=== PATIENT | male | born 1955 | race African-American/Black ===

== ENCOUNTER 2021-01-04 20:46 | Emergency (ER) | payer MEDICARE, MEDICAID ==
[~2021-01-04] VITALS: Ht 182.9 cm; Wt 91.0 kg
[2021-01-04 21:37] LABS: BASOPHILS % 0.6 % (0.0-2.0); EOSINOPHILS % 5.2 % (0.0-5.0); HEMATOCRIT. 35.2 % (42.0-52.0); HEMOGLOBIN. 11.8 g/dL (14.0-18.0); LYMPHOCYTES % 19.8 % (20.0-50.0); MEAN CORPUSCULAR HEMOGLOBIN 30.3 pg (28.0-32.0); MEAN CORPUSCULAR VOLUME 89.9 fL (80.0-94.0); MONOCYTES % 6.2 % (2.0-8.0); NEUTROPHILS % 68.2 % (40.0-76.0); PLATELET 178 x1000/uL (130-400); RED BLOOD CELL COUNT 3.91 mill/uL (4.7-6.1)
[2021-01-04 21:40] LABS: CHLORIDE 107 mEq/L (98-107)
[2021-01-04] MEDS ORDERED: ASPIRIN 325MG EC TABLET PO SCH (22:30)
[2021-01-04 23:10] VITALS: BP 110/65
== END 2021-01-04 23:15 | disposition left against medical advice (07) ==
LOC: ER 20:46
DX: I10 Essential (primary) hypertension (principal); R07.89 Other chest pain
CPT/HCPCS: 36415; 71045; 80053; 83880; 84484; 85025; 93005; 99285

== ENCOUNTER 2023-03-16 02:47 | Emergency (ER) | payer MEDICARE, MEDICAID ==
[~2023-03-16] VITALS: Ht 188 cm; Wt 100.0 kg
[~2023-03-16 02:47] MED LIST: APIX5TAB PO; ASPI-1406 PO; COR12 PO; EMPA25TA PO; FINA5TAB11 PO; FURO20TA4 PO; LIP40 PO; LOSA-413 PO; SENN1TAB35 PO; SPIR25TA PO; TAMS-11 PO
[2023-03-16 02:49] VITALS: O2SAT 98
[2023-03-16] MEDS ORDERED: METOPROLOL TARTRATE 5MG/5ML VIAL IV ONE (03:15)
[2023-03-16] MEDS ORDERED: MORPHINE SULFATE 4 MG/ML CPJ (NOT FOR IM USE) IV ONE (03:15)
[2023-03-16] MEDS ORDERED: ENOXAPARIN 100MG/ML SYR SUBCUT ONE (03:15)
[2023-03-16] MEDS ORDERED: ONDANSETRON HCL 4MG/2ML INJ IV ONE (03:15)
[2023-03-16] MEDS ORDERED: ASPIRIN 325MG EC TABLET PO ONE (03:15)
[2023-03-16] MEDS ORDERED: NITROGLYCERIN 0.2MG/HR PATCH TOP ONE (03:15)
[2023-03-16] MEDS ORDERED: HYDRALAZINE 20MG/ML VIAL IV ONE (03:15)
[2023-03-16 03:36] LABS: BASOPHILS % 0.6 % (0.0-2.0); EOSINOPHILS % 5.7 % (0.0-5.0); HEMATOCRIT. 40.7 % (42.0-52.0); HEMOGLOBIN. 13.2 g/dL (14.0-18.0); LYMPHOCYTES % 24.6 % (20.0-50.0); MEAN CORPUSCULAR HEMOGLOBIN 30.1 pg (28.0-32.0); MEAN CORPUSCULAR HGB CONC 32.4 g/dL (31.0-37.0); MEAN PLATELET VOLUME 9.7 fl (7.4-10.4); MONOCYTES % 7.6 % (2.0-8.0); NEUTROPHILS % 61.5 % (40.0-76.0); PLATELET 181 x1000/uL (130-400); RED BLOOD CELL COUNT 4.38 mill/uL (4.7-6.1); RED CELL DISTRIBUTION WIDTH 15.8 % (11.6-14.6); WHITE BLOOD COUNT 5.4 x1000/uL (4.5-11.0)
[2023-03-16 03:38] LABS: CHLORIDE 109 mEq/L (98-107); INDEX HEMOLYSI 1 (1-3); INDEX ICTERIC 1 (1-4); INDEX LIPEMIC 1 (1-3); POTASSIUM 4.4 mEq/L (3.5-5.1); SODIUM 136 mEq/L (136-145)
[2023-03-16 03:47] LABS: ALANINE AMINOTRANSFERASE 91 IU/L (13-61); ALBUMIN 3.6 g/dL (3.4-5.0); ASPARTATE AMINOTRANSFERASE 76 IU/L (15-37); BILIRUBIN TOTAL 0.3 mg/dL (0.1-1.0); CALCIUM 8.5 mg/dL (8.5-10.1); CARBON DIOXIDE 26 mEq/L (21-32); CREATININE 1.4 mg/dL (0.6-1.3); GLUCOSE 124 mg/dL (70-105); NT PRO B-TYPE NATRIURETIC PEP 1430 pg/mL (5-125); UREA NITROGEN BLOOD 19 mg/dL (7-21)
[2023-03-16 04:05] LABS: TROPONIN I HIGH SENSITIVITY 107 ng/L (<78)
[2023-03-16 06:23] LABS: TROPONIN I HIGH SENSITIVITY 99 ng/L (<78)
[2023-03-16] MEDS ORDERED: AMIODARONE HCL 150 MG in DEXT 5% WATER 100 ML IV SCH (09:00)
[2023-03-16] MEDS ORDERED: METOPROLOL SUCCINATE 50MG ER TABLET PO SCH (09:00)
[2023-03-16] MEDS ORDERED: SPIRONOLACTONE 25MG TABLET PO SCH (09:00)
[2023-03-16] MEDS ORDERED: ASPIRIN 81MG TABLET PO SCH (09:00)
[2023-03-16 10:40] VITALS: BP 93/62; PULSE 63; RESP 16; TEMP 98.7
== END 2023-03-16 10:50 | disposition short-term general hospital (02) ==
LOC: ER 03:06
DX: I20.0 Unstable angina (principal); R77.8 Other specified abnormalities of plasma proteins; I11.0 Hypertensive heart disease with heart failure; I50.9 Heart failure, unspecified; Z95.0 Presence of cardiac pacemaker; Z79.899 Other long term (current) drug therapy; Z20.822 Contact with and (suspected) exposure to COVID-19
CPT/HCPCS: 80053; 83880; 85025; 84484; 36415; 71045; 93005; 96365; 96372; 99285; 87426; Z7610 ×4; J0282; J1650; J2270; J7060; C9803; J0360; J2405; J3490